=== PATIENT | male | born 1995 | race Caucasian/White ===

== ENCOUNTER 2020-02-02 20:03 | Emergency (ER) | payer OTHER ==
[~2020-02-02] VITALS: Ht 167.6 cm; Wt 54.4 kg
[2020-02-02 20:05] VITALS: BP_SYST 134
--- NOTE | 2020-02-02 20:05 | NUR ---
Patient to ER [facility] [address] WITH [employer] for evaluation.
--- NOTE | 2020-02-02 20:10 | NUR ---
PT [facility] AND [facility]ULATORY BIB [facility] FOR MEDICAL CLEARANCE AND SHANTANU. PT DENIES HAVING ANY COMPLAINTS CURRENTLY.
--- NOTE | 2020-02-02 20:21 | NUR ---
PT VERBALIZED CONSENT FOR SHANTANU BLOOD DRAW
--- NOTE | 2020-02-02 20:22 | NUR ---
Written and verbal consent obtained from patient for blood alcohol, name and verified by patient. Disinfected patient's skin with IODINE that did not contain alcohol or other volatile organic compound. Collected the blood from the subject named by venipuncture, in the presence of JESSENIA BE. Used a sterile, dry hypodermic needle and dry vacuum blood collection. Two dry vacuum blood collection was supplied by the officer named above. Withdrew a specimen of blood from RIGHT AC of the subject named above. Inverted both blood tubes several times to ensure that the preservative and anticoagulant were thoroughly mixed in the blood specimen. I initialed both blood tube labels for identification. The labeled blood tubes were handed directly to the Officer named above. The blood tubes stopper remained in place while I had possession of the blood tubes. The Officer placed tubes into envelope and sealed it in my presence. Envelope initialed by myself and Officer named above. Patient tolerated well, bandage applied, and bleeding controlled.
--- NOTE | 2020-02-02 20:35 | NUR ---
ER Dr. GOLDSMITH at bedside examining patient.
[2020-02-02 20:50] VITALS: BP_SYST 134
--- NOTE | 2020-02-02 20:50 | NUR ---
Patient given written and verbal discharge instructions and verbalizes understanding. DR. RUPAL MICHELLE MD discussed with patient the results and treatment provided. Patient in stable condition. ID arm band removed. Pain Scale 0/10. Opportunity for questions provided and answered.
== END 2020-02-02 20:50 ==
LOC: SED 20:03
DX: Z04.3 Encounter for examination and observation following other accident (principal); F12.90 Cannabis use, unspecified, uncomplicated; F17.200 Nicotine dependence, unspecified, uncomplicated; V43.52XA Car driver injured in collision with other type car in traffic accident, initial encounter; Y93.89 Activity, other specified; Y92.413 State road as the place of occurrence of the external cause; Y99.8 Other external cause status
CPT/HCPCS: 99283